=== PATIENT | female | born 1960 | race Caucasian/White ===

== ENCOUNTER 2018-04-02 06:04 | Emergency (ER) | payer BC ==
[2018-04-02 06:04] VITALS: BMI 27.4
[2018-04-02] MEDS ORDERED: Lactated Ringer's 1,000 ML IV STA (06:31)
--- NOTE | 2018-04-02 06:31 | C.PDOC ---
History Of Present Illness pt presents with 2 days of headache, some dizziness and mild tinnitus,. Dull aching throbbing headache, Neuro non focal. No trauma. Time Seen by Provider: 04/02/18 06:31 Chief Complaint (Nursing): Dizziness/Lightheaded History Per: Patient History/Exam Limitations: no limitations Onset/Duration Of Symptoms: Days (2) Current Symptoms Are (Timing): Still Present Fall Associated With With Symptoms: No Severity: Moderate Pain Scale Rating Of: 4 Recent travel outside of the [place]: No Additional History Per: Patient - Symptoms Of CVA Recent Aspirin Use: No Current Coumadin Use?: Yes Recent Head Trauma: No Past Medical History Reviewed: Historical Data, Nursing Documentation, Vital Signs Vital Signs: Last Vital Signs Temp 97.7 F 04/02/18 06:14 Pulse 58 L 04/02/18 06:14 Resp 20 04/02/18 06:14 BP 134/84 04/02/18 06:14 Pulse Ox 98 04/02/18 06:31 - Medical History PMH: Depression, HTN Family History: States: No Known Family Hx - Social History Hx Alcohol Use: No Hx Substance Use: No - Immunization History Hx Tetanus Toxoid Vaccination: No Hx Influenza Vaccination: No Hx Pneumococcal Vaccination: No Review Of Systems Constitutional: Negative for: Fever, Chills Eyes: Negative for: Vision Change ENT: Negative for: Throat Pain Cardiovascular: Negative for: Chest Pain Respiratory: Negative for: Shortness of Breath Gastrointestinal: Positive for: Nausea. Negative for: Vomiting, Abdominal Pain Genitourinary: Negative for: Dysuria Musculoskeletal: Negative for: Back Pain Skin: Negative for: Rash Neurological: Positive for: Headache. Negative for: Weakness Psych: Negative for: Anxiety Physical Exam - Physical Exam Appears: Non-toxic Skin: Warm, Dry Head: Normacephalic Eye(s): bilateral: Normal Inspection Neck: Supple Chest: Symmetrical Cardiovascular: Rhythm Regular Respiratory: No Rales, No Rhonchi, No Wheezing Gastrointestinal/Abdominal: Soft, No Tenderness Back: Normal Inspection Extremity: Normal ROM Extremity: Bilateral: Atraumatic, Normal Color And Temperature Pulses: Left Dorsalis Pedis: Normal, Right Dorsalis Pedis: Normal Neurological/Psych: Oriented x3, Normal Speech, Normal Cognition Gait: Steady ED Course And Treatment O2 Sat by Pulse Oximetry: 98 Pulse Ox Interpretation: Normal Disposition Counseled Patient/Family Regarding: Studies Performed, Diagnosis - Disposition Disposition Time: 06:31 Condition: FAIR Forms: [facility] (Greenlandic) - Clinical Impression Clinical Impression: Dizziness, Headache Physician Patient Turnover Patient Signed Over To: Yulisa Galan Handoff Comments: pending ct, labs, re-eval and dispo
[2018-04-02] MEDS ORDERED: Lactated Ringer's 1,000 ML ONE (06:46)
[2018-04-02 07:02] LABS: BASO # 0.1 K/uL (0.0-0.2); BASO % 1.3 % (0.0-2.0); EOS # 0.1 K/uL (0.0-0.7); EOS % 1.9 % (0.0-4.0); HEMOGLOBIN 13.5 g/dL (11.0-16.0); LYMPH # 1.4 K/uL (1.0-4.3); LYMPH % 25.4 % (20.0-40.0); MEAN CELL VOLUME 93.3 fL (81.0-99.0); MEAN CORPUSCULAR HEMOGLOBIN 31.8 pg (27.0-31.0); MEAN CORPUSCULAR HGB CONC 34.1 g/dL (33.0-37.0); MEAN PLATELET VOLUME 8.8 fL (7.2-11.7); MONO # 0.3 K/uL (0.0-0.8); MONO % 6.3 % (0.0-10.0); NEUT # 3.6 K/uL (1.8-7.0); NEUT % 65.1 % (50.0-75.0); RBC 4.26 Mil/uL (3.80-5.20); RED CELL DISTRIBUTION WIDTH 13.9 % (11.5-14.5); WHITE BLOOD COUNT 5.5 K/uL (4.8-10.8)
[2018-04-02 07:14] LABS: ALB/GLOB RATIO 1.1 (1.0-2.1); ALBUMIN 4.2 g/dL (3.5-5.0); ALT/SGPT 17 U/L (9-52); AST/SGOT 28 U/L (14-36); BLOOD UREA NITROGEN 20 mg/dL (7-17); CALCIUM 9.6 mg/dl (8.6-10.4); GFR AFRICAN-AMERICAN > 60; GFR NON-AFRICAN AMERICAN > 60
[2018-04-02 07:35] LABS: SQUAMOUS EPITHIAL 4 /hpf (0-5); URINE BILIRUBIN NEGATIVE (NEGATIVE); URINE BLOOD 1+ (NEGATIVE); URINE CLARITY Clear (Clear); URINE COLOR Yellow (YELLOW); URINE GLUCOSE (UA) NORMAL (Normal); URINE LEUKOCYTE ESTERASE 2+ Leu/uL (Negative); URINE PROTEIN NEGATIVE (NEGATIVE); URINE UROBILINOGEN NORMAL mg/dL (0.2-1.0)
--- NOTE | 2018-04-02 08:25 | CT ---
PROCEDURE: CT HEAD WITHOUT CONTRAST. HISTORY: Headache COMPARISON: 07/08/2016 TECHNIQUE: Axial computed tomography images were obtained through the head/brain without intravenous contrast. Radiation dose: Total exam DLP = 857.71 mGy-cm. This CT exam was performed using one or more of the following dose reduction techniques: Automated exposure control, adjustment of the mA and/or kV according to patient size, and/or use of iterative reconstruction technique. FINDINGS: HEMORRHAGE: No intracranial hemorrhage. BRAIN: No mass effect or edema. No atrophy or chronic microvascular ischemic changes. VENTRICLES: Unremarkable. No hydrocephalus. CALVARIUM: Unremarkable. PARANASAL SINUSES: Unremarkable as visualized. No significant inflammatory changes. MASTOID AIR CELLS: Unremarkable as visualized. No inflammatory changes. OTHER FINDINGS: None. IMPRESSION: Normal CT of the Head. No intracranial mass, hemorrhage or evidence of acute infarct.
[2018-04-02 09:01] VITALS: BP 105/70; PULSE 69; RESP 18; TEMP 98; O2SAT 97
== END 2018-04-02 09:03 | disposition home or self-care (01) ==
LOC: C.ER 06:04
DX: R42 Dizziness and giddiness (principal); R51 Headache; I10 Essential (primary) hypertension
CPT/HCPCS: 70450; 80053; 81001; 85025; 96374; 96375; 99285; J2405; J2930; J7120

== ENCOUNTER 2018-07-06 15:35 | Emergency (ER) | payer BC ==
[2018-07-06 15:35] VITALS: BMI 27.4
[2018-07-06 16:33] LABS: EOS # 0.1 K/uL (0.0-0.7); HEMOGLOBIN 13.1 g/dL (11.0-16.0); LYMPH # 1.5 K/uL (1.0-4.3); LYMPH % 28.9 % (20.0-40.0); MEAN CELL VOLUME 93.1 fL (81.0-99.0); MEAN CORPUSCULAR HEMOGLOBIN 31.4 pg (27.0-31.0); MEAN CORPUSCULAR HGB CONC 33.7 g/dL (33.0-37.0); MEAN PLATELET VOLUME 8.2 fL (7.2-11.7); MONO # 0.4 K/uL (0.0-0.8); NEUT # 3.1 K/uL (1.8-7.0); NEUT % 61.1 % (50.0-75.0); NRBC % 0.2 % (0.0-2.0); RBC 4.18 Mil/uL (3.80-5.20); RED CELL DISTRIBUTION WIDTH 14.1 % (11.5-14.5); WHITE BLOOD COUNT 5.1 K/uL (4.8-10.8)
--- NOTE | 2018-07-06 16:49 | C.PDOC ---
History Of Present Illness <Marianela Hare - Last Filed: 07/06/18 18:12> <Mario Peña - Last Filed: 07/06/18 18:29> HPI: Patient is a 57 year old female with history of hyperlipidemia, migraines who reports sudden onset of 10/10 left sided chest pain at 3pm while she was exercising today. She is unable to clearly describe her pain, states she feels her pain is "inside." She reports her pain subsided to a 8/10 after she rested at the gym, and is currently a 4/10. She admits she was diaphoretic since she was exercising, however she denies nausea, vomiting, jaw pain, neck pain, radiation of pain, loss of consciousness, weakness, dizziness. She denies falling at the time of her pain, denies head trauma. She denies recent illness, denies fever, chills, shortness of breath, palpitations, abdominal pain, nausea , vomiting, diarrhea, dysuria, urinary complains, leg pain. She denies prior episodes of chest pain. She states she has followed with her locomotive engineer diesel for routine tests, has had EKG, stress test and ECHO which were normal as per patient. She denies prior cardiac history. PMH: migraines, hyperlipidemia PSH: C section x1 Meds: Trokenda 50mg daily, unknown cholesterol med Allergies: NKDA Social history: denies history of smoking, (+) admits to social ETOH use, wine. Denies illicit drug use. Family hx: none PMD: Dr. Suresh Cardio: Dr. Galindo (Marianela Hare) <Marianela Hrae - Last Filed: 07/06/18 18:12> <Mario Peña - Last Filed: 07/06/18 18:29> Time Seen by Provider: 07/06/18 15:54 Chief Complaint (Nursing): Chest Pain Past Medical History - Medical History PMH: Depression, HTN, Migraine Family History: States: Unknown Family Hx - Social History Hx Alcohol Use: No Hx Substance Use: No - Immunization History Hx Tetanus Toxoid Vaccination: No Hx Influenza Vaccination: No Hx Pneumococcal Vaccination: No <Marianela Hare - Last Filed: 07/06/18 18:12> Vital Signs: Last Vital Signs Temp 98.7 F 07/06/18 17:32 Pulse 52 L 07/06/18 17:32 Resp 18 07/06/18 17:32 BP 134/71 07/06/18 17:32 Pulse Ox 100 07/06/18 18:13 Review Of Systems Constitutional: Negative for: Fever, Chills Cardiovascular: Positive for: Chest Pain. Negative for: Palpitations Respiratory: Negative for: Shortness of Breath Gastrointestinal: Negative for: Nausea, Abdominal Pain, Diarrhea Genitourinary: Negative for: Dysuria Musculoskeletal: Negative for: Neck Pain, Back Pain Neurological: Negative for: Weakness, Confusion, Dizziness <Marianela Hare - Last Filed: 07/06/18 18:12> Physical Exam - Physical Exam Appears: Well, No Acute Distress Skin: Warm, Dry, No Diaphoretic Head: Atraumatic, Normacephalic Eye(s): bilateral: PERRL, EOMI Oral Mucosa: Moist Chest: Symmetrical, Tenderness (pinpoint reproducible tenderness to palpation on left anterior chest wall), No Ecchymosis Cardiovascular: Rhythm Regular, No Friction Rub, No Murmur, No JVD Respiratory: Normal Breath Sounds, No Rales, No Rhonchi, No Stridor, No Wheezing Gastrointestinal/Abdominal: Bowel Sounds, Soft, No Tenderness, No Rebound, No Hernia Back: No CVA Tenderness, No Muscle Spasm, No Paraspinal Tenderness Extremity: Normal ROM, No Tenderness, No Pedal Edema Neurological/Psych: Oriented x3, Normal Speech <Marianela Hare - Last Filed: 07/06/18 18:12> ED Course And Treatment - Laboratory Results Result Diagrams: 07/06/18 16:29 07/06/18 16:29 ECG Rhythm: Sinus Bradycardia O2 Sat by Pulse Oximetry: 100 - Radiology CXR: Interpreted by Me (Dr. Peña), Viewed By Me CXR Interpretation: Yes: No Acute Disease Progress Note: On repeat evaluation at 1710, patient states her chest pain has resolved. Patient is resting comfortably in bed, and is in no acute distress. Reevaluation Time: 17:10 Reassessment Condition: Improved <Marianela Hare - Last Filed: 07/06/18 18:12> - Laboratory Results Result Diagrams: 07/06/18 16:29 07/06/18 16:29 <Mario Peña - Last Filed: 07/06/18 18:29> Medical Decision Making <Marianela Hare - Last Filed: 07/06/18 18:12> <Mario Peña - Last Filed: 07/06/18 18:29> Medical Decision Making: ekg - sinus steven at 59 bpm with nrm intervals, nrm axis, no st or twave abn. patient with left side reproducible chest pain, none now, heart score 2, second troponin at 1999. case s/o to Dr. Jordan at 1900 (Mario Peña) Disposition <Marianela Hare - Last Filed: 07/06/18 18:12> Discussed With : America Jordan - Disposition Disposition Time: 19:00 <Mario Peña - Last Filed: 07/06/18 18:29> - Disposition Condition: STABLE Forms: [employer] (Sinhala) - Clinical Impression Clinical Impression: Chest discomfort Physician Patient Turnover Patient Signed Over To: America Jordan <Mario Peña - Last Filed: 07/06/18 18:29>
[2018-07-06 16:56] LABS: ALB/GLOB RATIO 1.5 (1.0-2.1); ALBUMIN 4.5 g/dL (3.5-5.0); ALT/SGPT 23 U/L (9-52); AST/SGOT 40 U/L (14-36); BLOOD UREA NITROGEN 25 mg/dL (7-17); GFR AFRICAN-AMERICAN > 60; GFR NON-AFRICAN AMERICAN > 60
[2018-07-06 17:33] VITALS: TEMP 98.7
--- NOTE | 2018-07-06 17:47 | RAD ---
Date of service: 07/06/2018 HISTORY: Chest pain COMPARISON: No prior. TECHNIQUE: Chest PA and lateral FINDINGS: LUNGS: No active pulmonary disease. PLEURA: No significant pleural effusion identified. No pneumothorax apparent. CARDIOVASCULAR: No radiographic findings to suggest acute or significant cardiovascular disease. OSSEOUS STRUCTURES: No significant abnormalities. VISUALIZED UPPER ABDOMEN: Normal. OTHER FINDINGS: None. IMPRESSION: No active disease.
[2018-07-06 21:20] VITALS: BP 118/76; PULSE 59; RESP 12; O2SAT 100
--- NOTE | 2018-07-07 12:03 | CARD ---
APPROVED REPORT Date of service: 07/06/2018 EKG Measurement Heart [id number] <Conclusion> Sinus bradycardia Otherwise normal ECG
== END 2018-07-06 21:20 | disposition home or self-care (01) ==
LOC: C.ER 15:35
DX: R07.89 Other chest pain (principal)
CPT/HCPCS: 71046; 80053; 82550; 84484; 85025; 93005; 96374; 99285; J1885